=== PATIENT | female | born 1975 | race Two or more races ===

== ENCOUNTER 2021-10-14 18:32 | Emergency (ER) | payer OTHER ==
[~2021-10-14] VITALS: Ht 165.1 cm; Wt 52.2 kg
[2021-10-14] MEDS ORDERED: MINIVELLE1 EAC1 (18:41)
== END 2021-10-14 21:41 | disposition home or self-care (01) ==
LOC: ER 18:32
DX: O20.9 Hemorrhage in early pregnancy, unspecified (principal); Z3A.01 Less than 8 weeks gestation of pregnancy; Z20.822 Contact with and (suspected) exposure to COVID-19

== ENCOUNTER 2022-01-06 09:12 | Emergency (ER) | payer OTHER ==
[~2022-01-06] VITALS: Ht 165.1 cm; Wt 54.9 kg
[~2022-01-06 09:12] MED LIST: MINIVELLE1 EAC1
[2022-01-06] MEDS ORDERED: CONCEPT OB CAP1 EACH (09:22)
== END 2022-01-06 11:29 | disposition home or self-care (01) ==
LOC: ER 09:12
DX: O46.92 Antepartum hemorrhage, unspecified, second trimester (principal); Z3A.17 17 weeks gestation of pregnancy